=== PATIENT | female | born 1990 | race Caucasian/White ===

== ENCOUNTER 2016-10-18 16:25 | Emergency (ER) | payer BC ==
[~2016-10-18] VITALS: Ht 154.9 cm; Wt 59.0 kg
--- NOTE | 2016-10-18 18:05 | Emergency Room Report ---
History of Present Illness General Chief Complaint: Abdominal Pain Source: Patient Present Illness HPI 26 YO Female presents to the ED c/o of 8/10 severity Right-sided adnexal pain x 1 week. pt. states she has had similar episodes every few months. pt. recently had beside US performed at [facility] ED and was told She had hydronephrosis. Patient denies fevers or chills. Patient reports pressure- like pain in the right lower abdominal/thigh area. Patient denies . Patient presents to the emergency department because she feels that pain has increased this morning. Denies vaginal d/c, hx of STI, or recent unprotected intercourse. Denies hematuria, frequency, dysuria, back pain, denies constipation, diarrhea, nausea or vomiting. Denies CP, Palpitations, LOC, AMS, dizziness, Changes in Vision, Sensation, paresthesias, or a sudden severe headache. Allergies: Coded Allergies: No Known Allergies (Unverified , 10/18/16) Patient History Past Medical History: see triage record Past Surgical History: none Last Menstrual Period: 2 1/2 weeks ago Now: No Immunizations: UTD Reviewed Nursing Documentation: PMH: Agreed, PSxH: Agreed Nursing Documentation-PMH Past Medical History: No History, Except For Review of Systems All Other Systems: negative except mentioned in HPI Physical Exam Vital Signs Date Time Temp Pulse Resp B/P Pulse Ox O2 Delivery O2 Flow Rate FiO2 10/18/16 16:35 98.8 72 16 112/77 97 Room Air Sp02 EP Interpretation: reviewed, normal General Appearance: no apparent distress, alert, GCS 15, non-toxic Head: normocephalic, atraumatic Eyes: bilateral eye PERRL, bilateral eye normal inspection ENT: hearing grossly normal, normal pharynx, no angioedema, normal voice Neck: full range of motion, supple/symm/no masses Respiratory: chest non-tender, lungs clear, normal breath sounds, speaking full sentences Cardiovascular #1: regular rate, rhythm, no edema Gastrointestinal: normal bowel sounds, non tender, soft, no guarding, no rebound, other - Negative [place] signs, Negative MacBurney's sign, Negative Rosvigns Sign, Negative Psoas, No Peritoneal signs. , Right adenexal TTP Rectal: deferred Genitourinary: normal inspection, no CVA tenderness, other - right adenexal pain Musculoskeletal: back normal, gait/station normal, normal range of motion, non- tender, no calf tenderness Neurologic: alert, oriented x3, responsive, motor strength/tone normal, sensory intact, speech normal Psychiatric: judgement/insight normal, memory normal, mood/affect normal, no suicidal/homicidal ideation Reflexes: 4+ bicep (R), 4+ bicep (L), 4+ tricep (R), 4+ tricep (L), 4+ knee (R) , 4+ knee (L) Skin: normal color, no rash, warm/dry, well hydrated Lymphatic: no adenopathy Medical Decision Making PA Attestation Dr. quevedo is my supervising Physician whom patient management has been discussed with. Diagnostic Impression: Primary Impression: Ruptured ovarian cyst Additional Impression: UTI (urinary tract infection) Qualified Codes: N30.00 - Acute cystitis without hematuria ER Course Pt. presents to the ED c/o of Right-sided adnexal pain x 1 week. pt. states she has had similar episodes every few months. pt. recently had beside US performed at [facility] ED and was told She had hydronephrosis. Patient denies fevers or chills. Patient reports pressure-like pain in the right lower abdominal/thigh area. Patient denies . Patient presents to the emergency department because she feels that pain has increased this morning. Ddx considered but are not limited to Diverticulitis, acute appy, ovarian torsion, ectopic , PID tubo-ovarian abscess, ovarian cyst. Vital signs: are WNL, pt. is afebrile H&PE are most consistent with possible ovarian cyst, however due to presentation will r/o torsion, ectopic, and stone. ORDERS: -UA: WBC's and Leuks indicating UTI. -URINE HCG: Negative -Pelvic US Complete: no torsion, no ectopic, evidence of free fluid - Per preliminary US verbal report. ED INTERVENTIONS: - 40mg IM Toradol - d/w pt. the r esults of her ultrasound and laboratory testing. Discussed with patient that she will need to followup with [facility] and establish herself with a primary care provider. Also discussed with the patient to return to the emergency department with worsening or new symptoms. DISCHARGE: At this time pt. is stable for d/c to home. Will provide printed patient care instructions, and any necessary prescriptions. Care plan and follow up instructions have been discussed with the patient prior to discharge. Labs Test 10/18/16 17:30 Urine Color Yellow Urine Appearance Slightly cloudy Urine pH 6 (4.5-8.0) Urine Specific [place] 1.025 (1.005-1.035) Urine Protein 2+ (NEGATIVE) Urine Glucose (UA) Negative (NEGATIVE) Urine Ketones 3+ (NEGATIVE) Urine Occult Blood 3+ (NEGATIVE) Urine Nitrite Negative (NEGATIVE) Urine Bilirubin Negative (NEGATIVE) Urine Urobilinogen 1 MG/DL (0.0-1.0) Urine Leukocyte Esterase 1+ (NEGATIVE) Urine RBC 2-4 /HPF (0 - 2) Urine WBC 0-2 /HPF (0 - 2) Urine Squamous Epithelial Cells Few /LPF (NONE/OCC) Urine Bacteria Many /HPF (NONE) Urine HCG, Qualitative Negative Last Vital Signs Date Time Temp Pulse Resp B/P Pulse Ox O2 Delivery O2 Flow Rate FiO2 10/18/16 16:35 98.8 72 16 112/77 97 Room Air Disposition: HOME, SELF-CARE Condition: Stable Scripts Nitrofurantoin Monohyd/M-Cryst* (MACROBID 100 MG*) 100 Mg Capsule 100 MG ORAL EVERY 12 HOURS for 5 Days, #10 CAP Prov: Teresa Pena 10/18/16 Ibuprofen* (MOTRIN*) 600 Mg Tablet 600 MG ORAL THREE TIMES A DAY, #30 TAB 0 Refills Prov: Teresa Pena 10/18/16 Referrals: NON PHYSICIAN (PCP) Patient Instructions: Ovarian Cyst, Urinary Tract Infection, [id number] Additional Instructions: Take medications as directed. Follow up with PCP in 3-5 days Return sooner to ED if new symptoms occur, or current symptoms become worse. Teresa Pena Oct 18, 2016 18:05
[2016-10-18 18:09] LABS: APPEARANCE,URINE SLIGHTLY CLOUDY; KETONES,URINE 3+ (NEGATIVE); LEUKOCYTE ESTERASE ,URINE 1+ (NEGATIVE); NITRITE,URINE NEGATIVE (NEGATIVE); PH,URINE 6 (4.5-8.0); PROTEIN,URINE 2+ (NEGATIVE); UROBILINOGEN,URINE 1 MG/DL (0.0-1.0)
[2016-10-18] MEDS ORDERED: IBUPROFEN600 MG ORAL (18:13)
[2016-10-18 18:37] LABS: BACTERIA,URINE MANY /HPF; SQUAMOUS EPITHELIAL CELL,UR FEW /LPF (NONE/OCC); WBC,URINE 0-2 /HPF (0 - 2)
[2016-10-18] MEDS ORDERED: NITROFURANTOIN100 M2 ORAL (18:43)
[2016-10-18 18:59] VITALS: BP 116/79
[2016-10-18 19:00] VITALS: BP 116/79
[2016-10-18] MEDS ORDERED: Mylanta II UD 30ml ORAL ONE (19:15)
[2016-10-18] MEDS ORDERED: Metoclopramide 10mg/2ml Inj IVP ONE (19:15)
[2016-10-18] MEDS ORDERED: Lidocaine 2% Visc 15ml soln ORAL ONE (19:15)
[2016-10-18] MEDS ORDERED: Dicyclomine HCl 10mg/5ml oral soln ORAL ONE (19:15)
--- NOTE | 2016-10-19 09:53 | Diagnostic Imaging Report ---
Indications: Right-sided pelvic pain LMP 09/25/16 Technique: Transabdominal and transvaginal real-time grayscale and duplex Doppler imaging of the pelvis was performed. Findings: Comparison: None Uterus measures 6.4 x 4.4 x 3.7cm. It demonstrates normal contour and myometrial echotexture without focal abnormality. The endometrial complex measures 8 mm in diameter. It is unremarkable in appearance without obvious focal abnormality. Cervix unremarkable. Small amount of free fluid is present in the cul-de-sac. Right ovary measures 3.7 x 3.9 x 1.6 cm. Contains multiple peripheral follicles.. Duplex Doppler imaging demonstrates normal blood flow. No extra-ovarian abnormality is seen. Left ovary measures 4.2 x 4 x 1.5 cm. Contains multiple peripheral follicles.. Duplex Doppler imaging demonstrates normal blood flow. No extra-ovarian abnormality is seen. IMPRESSION: Unremarkable uterus and ovaries Small amount pelvic free fluid, nonspecific, may be secondary to recent follicle/cyst rupture
== END 2016-10-18 19:01 | disposition home or self-care (01) ==
LOC: EMR 17:05
DX: N83.201 Unspecified ovarian cyst, right side (principal); N39.0 Urinary tract infection, site not specified
CPT/HCPCS: 76830; 76856; 81003; 81025; 87086; 99284